=== PATIENT | male | born 1955 | race Caucasian/White ===

== ENCOUNTER → 2024-04-06 10:23 | Outpatient (REF) | payer OTHER, SELFPAY | LOC: RAD 10:23 | PROVIDERS: ATTENDING PHYSICIAN Internal Medicine | DX: Z12.2 Encounter for screening for malignant neoplasm of respiratory organs (principal); F17.210 Nicotine dependence, cigarettes, uncomplicated; R91.8 Other nonspecific abnormal finding of lung field; J84.10 Pulmonary fibrosis, unspecified; J43.9 Emphysema, unspecified | CPT/HCPCS: 71271 ==

== ENCOUNTER → 2024-06-08 08:00 | Outpatient (REF) | payer OTHER, SELFPAY ==
[2024-06-08 09:43] LABS: Microalbumin, Random Urine 0.7 mg/dl (0.6-1.7); Microalbumin/creatinine Ratio 4.1 mg/g
[2024-06-08 09:59] LABS: ALT (SGPT) 21 U/L (0-50); AST (SGOT) 25 U/L (17-59); Albumin 4.4 g/dl (3.5-5.0); Alkaline Phosphatase 88 U/L (38-126); Blood Urea Nitrogen 14 mg/dl (9-20); Calcium 9.7 mg/dl (8.4-10.2); Carbon Dioxide 26 mmol/L (22-30); Chloride 102 mmol/L (98-107); Glucose 112 mg/dl (70-99); HDL Cholesterol 39 mg/dl; LDL Cholesterol, Calculated 84 mg/dl; Potassium 4.7 mmol/L (3.5-5.1); Sodium 135 mmol/L (135-145); Total Bilirubin 0.6 mg/dl (0.2-1.3); Total Cholesterol 158 mg/dl (50-199); Total Protein 6.4 g/dl (6.3-8.2); Triglyceride 175 mg/dl (10-149); Very Low Density Lipoprotein 35 mg/dl (0-30); eGFR > 60.00
[2024-06-08 10:24] LABS: Glycohemoglobin (HgbA1c) 6.5 % (4.0-5.6)
[2024-06-08 10:33] LABS: PSA, Total - Screen 0.76 ng/ml (0.0-4.0)
== END ==
LOC: REG 08:00
PROVIDERS: ATTENDING PHYSICIAN Internal Medicine
DX: E11.9 Type 2 diabetes mellitus without complications (principal); E78.2 Mixed hyperlipidemia; Z12.5 Encounter for screening for malignant neoplasm of prostate
CPT/HCPCS: 36415; 80053; 80061; 82043; 82570; 83036; G0103

== ENCOUNTER → 2024-06-27 08:38 | Outpatient (REF) | payer OTHER, SELFPAY ==
[2024-06-27 11:39] LABS: ALT (SGPT) 20 U/L (0-50); AST (SGOT) 32 U/L (17-59); Albumin 4.4 g/dl (3.5-5.0); Alkaline Phosphatase 82 U/L (38-126); Blood Urea Nitrogen 18 mg/dl (9-20); Calcium 9.8 mg/dl (8.4-10.2); Carbon Dioxide 22 mmol/L (22-30); Chloride 103 mmol/L (98-107); Glucose 115 mg/dl (70-99); HDL Cholesterol 41 mg/dl; LDL Cholesterol, Calculated 70 mg/dl; Potassium 4.5 mmol/L (3.5-5.1); Sodium 134 mmol/L (135-145); Total Bilirubin 0.6 mg/dl (0.2-1.3); Total Cholesterol 132 mg/dl (50-199); Total Protein 6.3 g/dl (6.3-8.2); Triglyceride 108 mg/dl (10-149); Very Low Density Lipoprotein 21 mg/dl (0-30); eGFR > 60.00
== END ==
LOC: REG 08:38
PROVIDERS: ATTENDING PHYSICIAN Internal Medicine Cardiovascular Disease; FAMILY PHYSICIAN Internal Medicine
DX: E78.2 Mixed hyperlipidemia (principal)
CPT/HCPCS: 36415; 80053; 80061

== ENCOUNTER → 2024-11-30 08:06 | Outpatient (REF) | payer OTHER, SELFPAY ==
[2024-11-30 09:38] LABS: ALT (SGPT) 18 U/L (0-50); AST (SGOT) 22 U/L (17-59); Albumin 4.6 g/dl (3.5-5.0); Alkaline Phosphatase 86 U/L (38-126); Blood Urea Nitrogen 18 mg/dl (9-20); Calcium 9.6 mg/dl (8.4-10.2); Carbon Dioxide 22 mmol/L (22-30); Chloride 103 mmol/L (98-107); Glucose 119 mg/dl (70-99); HDL Cholesterol 45 mg/dl; LDL Cholesterol, Calculated 109 mg/dl; Potassium 4.5 mmol/L (3.5-5.1); Sodium 136 mmol/L (135-145); Total Bilirubin 0.5 mg/dl (0.2-1.3); Total Cholesterol 183 mg/dl (50-199); Total Protein 6.8 g/dl (6.3-8.2); Triglyceride 148 mg/dl (10-149); Very Low Density Lipoprotein 29 mg/dl (0-30); eGFR > 60.00
[2024-11-30 09:41] LABS: Microalbumin, Random Urine 1.1 mg/dl (0.6-1.7)
[2024-11-30 11:07] LABS: PSA, Total - Screen 0.58 ng/ml (0.0-4.0)
[2024-11-30 11:20] LABS: Erythrocyte Sed Rate 16 mm/hour (0-20)
[2024-11-30 11:55] LABS: tTG IgA Antibody 3.6 EU/ml (0-19); tTG IgG Antibody 5.4 EU/ml (0-19)
[2024-11-30 12:31] LABS: Glycohemoglobin (HgbA1c) 6.6 % (4.0-5.6)
[2024-11-30 23:19] LABS: IgA 93 mg/dl (70-400)
[2024-12-02 16:07] LABS: Fat, Fecal - Neutral Normal (Normal); Fat, Fecal - Split Normal (Normal)
[2024-12-02 22:46] LABS: Endomysial IgA Antibody Titer <1:10 (<1:10)
== END ==
LOC: REG 08:06
PROVIDERS: ATTENDING PHYSICIAN Internal Medicine; OTHER PHYSICIAN Internal Medicine Gastroenterology
DX: E11.59 Type 2 diabetes mellitus with other circulatory complications (principal); I10 Essential (primary) hypertension; E78.2 Mixed hyperlipidemia
CPT/HCPCS: 36415; 80053; 80061; 82043; 82570; 82653; 82705; 82784; 83036; 83516; 83993; 85652; 86140; 86231; G0103

== ENCOUNTER → 2024-12-06 09:26 | Outpatient (REF) | payer OTHER, SELFPAY ==
[2024-12-09 23:39] LABS: Pancreatic Elastase, Fecal 109 ug/g (>=100)
[2024-12-09 23:45] LABS: Calprotectin, Fecal 23 ug/g (<=49)
== END ==
LOC: REG 09:26
PROVIDERS: ATTENDING PHYSICIAN Internal Medicine Gastroenterology; FAMILY PHYSICIAN Internal Medicine
DX: K52.9 Noninfective gastroenteritis and colitis, unspecified (principal)
CPT/HCPCS: 82653; 83993; 87328; 87329

== ENCOUNTER → 2024-12-26 14:48 | Outpatient (REF) | payer OTHER, SELFPAY ==
[2024-12-29 00:07] LABS: Gastrin 17 pg/mL (0-100)
[2024-12-29 03:56] LABS: Calcitonin 5.5 pg/mL (0.0-7.5)
== END ==
LOC: REG 14:48
PROVIDERS: ATTENDING PHYSICIAN Internal Medicine Gastroenterology; FAMILY PHYSICIAN Internal Medicine
DX: K52.9 Noninfective gastroenteritis and colitis, unspecified (principal); K52.838 Other microscopic colitis; R19.7 Diarrhea, unspecified; Z79.02 Long term (current) use of antithrombotics/antiplatelets; E11.59 Type 2 diabetes mellitus with other circulatory complications
CPT/HCPCS: 36415; 82308; 82941; 84586; 86316

== ENCOUNTER → 2024-12-29 10:31 | Outpatient (REF) | payer OTHER, SELFPAY | LOC: REG 10:31 | PROVIDERS: ATTENDING PHYSICIAN Internal Medicine Gastroenterology; FAMILY PHYSICIAN Internal Medicine | DX: K52.9 Noninfective gastroenteritis and colitis, unspecified (principal); K52.838 Other microscopic colitis; R19.7 Diarrhea, unspecified; Z79.02 Long term (current) use of antithrombotics/antiplatelets; E11.59 Type 2 diabetes mellitus with other circulatory complications | CPT/HCPCS: 81050; 83497; 83835 ==

== ENCOUNTER → 2025-01-19 09:01 | Outpatient (REF) | payer OTHER, SELFPAY | LOC: RCS 09:01 | PROVIDERS: ATTENDING PHYSICIAN Student in an Organized Health Care Education/Training Program; FAMILY PHYSICIAN Internal Medicine | DX: I48.0 Paroxysmal atrial fibrillation (principal) | CPT/HCPCS: 93306 ==

== ENCOUNTER 2025-03-01 06:26 | Day surgery (SDC) | payer OTHER, SELFPAY ==
[2025-03-01 08:55] LABS: Glucose - Point of Care 126 mg/dl (70-99)
== END 2025-03-01 10:29 | disposition home or self-care (01) ==
LOC: GI 06:26
PROVIDERS: ATTENDING PHYSICIAN Internal Medicine Gastroenterology
DX: K52.9 Noninfective gastroenteritis and colitis, unspecified (principal); K64.8 Other hemorrhoids; K52.832 Lymphocytic colitis
CPT/HCPCS: 45380; 88305; 82962; 88342

== ENCOUNTER 2025-07-24 10:34 | Emergency (ER) | payer OTHER, SELFPAY ==
[2025-07-24] VITALS (21 sets, daily range): BP systolic 128–169; BP diastolic 61–81; BMI 29.8
--- NOTE | 2025-07-24 11:00 | ED.GENMED ---
History of Present Illness
General
Chief Complaint: Chest Pain
Source: patient and spouse
Time Seen by Provider: 07/24/25 10:47
History of Present Illness
History of Present Illness:
69-year-old male with past medical history of CAD status post previous MS with cardiac stent, atrial fibrillation, hypertension, hyperlipidemia, [id number] diabetes presenting to the ER for evaluation after he woke up this morning around
830 noticing a pain to the left anterior chest described to be more of a dull aching sensation that is constant, nonradiating, no exacerbating or alleviating factors and stating that he also noticed his heart rate was a little bit lower than usual
noting his heart rate is usually in the low 70s but today was in the 50s. He denies any other symptoms including shortness of breath, diaphoresis, lightheadedness or dizziness, feelings of near syncope, nausea or vomiting, abdominal pain, coughing,
pleurisy, lower extremity edema. Patient follows with [facility] cardiology and reports that he was seen within the last year and believes he had a normal echocardiogram at that time.
Past History
Past History
ED Past Medical History: Arrthythmia, CAD, HTN, Hypercholesterolemia, NIDDM and MS
ED Past Surgical History: Appendectomy, Cardiac and Orthopedic
Social History
Tobacco: Former smoker
Alcohol: Occasional
Drug: None
Personal:
Living: with family
Employment: Employed
Family History
Family History: Unable to obtain
Review of Systems
Review of Systems
All Other Systems: ROS reviewed and negative except as documented in HPI and ROS
Phy Exam
Physical Exam
Physical Exam:
GENERAL: Alert , in no apparent distress
EYE: clear conjunctiva b/l
HEAD: NCAT
ENT: o/p clr, mmm.
CARDIAC: Regular rate and rhythm .
LUNGS: Clear breath sounds bilaterally, no acute respiratory distress, no wheezes/rales/rhonchi
ABDOMEN: Soft, without focal tenderness, no r/g, no cvat
NEUROLOGICAL: Alert and oriented
SKIN: Warm and dry, skin intact.
MUSCULOSKELETAL: well perfused.
PSYCH: Normal and appropriate interaction.
Scores
Heart Failure Risk
Heart Failure Risk Score: Not Applicable
Heart Score for Chest Pain Patients
STEMI patient?: Not applicable
Withdrawal Assessment of Alcohol
Withdrawal Assessment Completed?: Not applicable
Course
Orders/Labs/Results
Orders:
Orders
07/24/25 10:38
Electrocardiogram (*1) Urgent
Reason for Study: Chest Pain
EKG- Treatment ONCE
07/24/25 11:01
Nitroglycerin Sublingual [Nitrostat (Sublingual)] 0.4 mg SL [id number] PRN
CR Chest - 2 Views Urgent
Comment:
Reason For Exam: chest pain
07/24/25 11:09
Basic Metabolic Panel Urgent
Complete Blood Count/With Diff Urgent
Troponin I Urgent
07/24/25 13:26
EKG- Treatment ONCE
07/24/25 13:45
EKG [Electrocardiogram (*1)] Urgent
Reason for Study: Chest Pain
07/24/25 13:50
Troponin I Urgent
Abnormal Lab Results
07/24/25
11:09
RBC 4.23 L 10^6/uL
(4.70-6.10)
Hgb 12.9 L g/dL
(13.0-18.0)
Hct 37.0 L %
(39.0-52.0)
MPV 11.4 H fL
(7.4-10.4)
Abs Immat Gran (auto) 0.2 H 10^3/uL
(0-0.05)
Absolute Neuts (auto) 7.2 H 10^3/uL
(1.4-6.5)
Absolute Monos (auto) 0.9 H 10^3/uL
(0.1-0.6)
Immature Gran % 1.6 H %
(0-0.5)
Sodium 131 L mmol/L
(135-145)
Glucose 200 H mg/dl
(70-99)
07/24/25 11:09
07/24/25 11:09
Vital Signs
Initial and Last Documented VS:
Initial Vital Signs
Temp Pulse Resp BP Pulse Ox
97.6 F 56 20 169/81 96
07/24/25 10:37 07/24/25 10:37 07/24/25 10:37 07/24/25 10:37 07/24/25 10:37
Last Documented Vital Signs
Temp Pulse Resp BP Pulse Ox
97.6 F 61 19 145/70 96
07/24/25 10:37 07/24/25 14:25 07/24/25 14:25 07/24/25 13:00 07/24/25 14:25
MDM/Problems Addressed
Differential Diagnosis Includes:
ACS/NSTEMI
Cardiac arrhythmia/dysrhythmia
Valvular dysfunction
Pericarditis/myocarditis
PE considered however patient is without cough, pleurisy or any other symptoms that would be suggestive of PE
Patient has clear lung sounds throughout making pneumothorax less likely
GERD/gastritis
MDM/Problems Addressed:
69-year-old male presenting to the ER for evaluation of chest pain and reportedly low heart rate for his baseline since this morning. Pain currently is 3 out of 10 described to be a dull ache. Not reproducible with palpation or position. Patient
is hemodynamically stable. Will trial a dose of nitroglycerin here. Labs and chest x-ray ordered. EKG done in triage shows sinus bradycardia without ectopy nor ischemic changes.
*Radiology
Radiology exam reviewed: preliminary read by ED provider (Normal chest x-ray female)
*Pulse Oximetry
SaO2: 96
Oxygen Mode of Delivery: Room air
Patient hypoxic: no
*EKG
Heart Rate: 55
Rate: bradycardiac
Rhythm: sinus
Vancleve: normal axis
Ischemia: no ischemia
*Cube Machine Tender Interpretation
Rate: bradycardiac
Heart Rate: 57
Rhythm: sinus
*Critical Care Note
Total Time (30-74mins, 75-104mins- exclusive of procedures): Not Applicable
Data Reviewed
Review of Other/Old Records Reveals: Labs, Records and Testing
Patient Management
Escalation/DeEscalation of care consider admission/obs:
Repeat troponin and EKG remain unchanged. Patient continues to feel well. Chest pain hotline was notified for patient follow-up. He is aware of return precautions. Stable for discharge home.
ED Attending Note
-
Portions of this chart may have been created with voice recognition software.� Occasional wrong word or��sound alike� substitutions may have occurred due to the inherent limitations of voice recognition software.
Discharge Plan
Departure
Patient Disposition: Home (Routine Discharge)
Date of Disposition: 07/24/25
Time of Disposition: 14:29
Patient with high blood pressure during this ER visit?: Yes
Discharge Problem:
Chest pain
Instructions: Chest Pain CBC Follow Up
Prescriptions:
No Action
nitroglycerin 0.4 MG tablet, sublingual
0.4 mg sublingual [id number] PRN (Reason: chest pain) Qty: 30 2RF
Patient Comments:
Patient states they havent needed it - never taken 05/20/16
atorvastatin 80 MG tablet
80 mg PO DAILY
aspirin 81 MG tablet,delayed release (DR/EC)
81 mg PO DAILY
gabapentin 300 mg capsule
300 mg PO DAILY
budesonide 3 mg capsule,delayed,extend.release
9 mg PO DAILY
lisinopril-hydrochlorothiazide 10-12.5 mg tablet
1 tab PO DAILY
metformin 500 mg tablet extended release 24 hr
500 mg PO DAILY
ezetimibe 10 mg tablet
10 mg PO DAILY
metoprolol tartrate 25 mg tablet
25 mg PO BID
Interventions
Interventions:
*Risk Screen - Suicide Last Done: 07/24/25 10:37
*General Assessment Last Done: 07/24/25 10:37
*Neglect/Abuse Screening Last Done: 07/24/25 11:05
*ED- Fall Risk Assessment Last Done: 07/24/25 11:05
*ED COVID-19 Vaccine History Last Done: 07/24/25 11:05
*Nursing Disposition Last Done: 07/24/25 14:37
ED- Cardiac Assessment Last Done: 07/24/25 11:05
Discharge Date and Time
Discharge Date/Time: 07/24/25 14:38
Print Language: KITTITIAN
[2025-07-24] MEDS: NITROSTAT (SUBLINGUAL) 0.4 MG SL (11:11)
[2025-07-24 11:35] LABS: Hematocrit 37.0 % (39.0-52.0); Hemoglobin 12.9 g/dL (13.0-18.0); Mean Corp Hgb Conc. 34.9 g/dL (33.0-37.0); Mean Corpuscular Volume 87.5 fL (80.0-94.0); Nucleated Red Blood Cells % 0 % (-); Platelet Count 200 10^3/uL (130-400); Red Cell Dist. Width 13.1 % (11.5-14.5)
[2025-07-24 11:47] LABS: Troponin I < 0.012 ng/ml
[2025-07-24 11:51] LABS: Blood Urea Nitrogen 12 mg/dl (9-20); Calcium 9.4 mg/dl (8.4-10.2); Carbon Dioxide 23 mmol/L (22-30); Chloride 101 mmol/L (98-107); Estimated Creatinine Clearance 113 ml/min; Glucose 200 mg/dl (70-99); Potassium 4.2 mmol/L (3.5-5.1); Sodium 131 mmol/L (135-145); eGFR > 60.00
[2025-07-24 14:27] LABS: Troponin I < 0.012 ng/ml
== END 2025-07-24 14:38 | disposition home or self-care (01) ==
LOC: EMR 10:34
PROVIDERS: Physician Assistant Medical; EMERGENCY PHYSICIAN Emergency Medicine; FAMILY PHYSICIAN Internal Medicine
DX: R07.9 Chest pain, unspecified (principal); E11.9 Type 2 diabetes mellitus without complications; E78.00 Pure hypercholesterolemia, unspecified; I10 Essential (primary) hypertension; I25.10 Atherosclerotic heart disease of native coronary artery without angina pectoris; I25.2 Old myocardial infarction; I48.91 Unspecified atrial fibrillation; Z87.891 Personal history of nicotine dependence; Z90.49 Acquired absence of other specified parts of digestive tract
CPT/HCPCS: 99285; 71046; 80048; 84484; 85025; 93005

== ENCOUNTER → 2025-08-01 06:58 | Outpatient (REF) | payer OTHER, SELFPAY | LOC: HWRCS 06:58 | PROVIDERS: ATTENDING PHYSICIAN Student in an Organized Health Care Education/Training Program; FAMILY PHYSICIAN Internal Medicine | DX: E78.2 Mixed hyperlipidemia (principal); I48.0 Paroxysmal atrial fibrillation; I25.10 Atherosclerotic heart disease of native coronary artery without angina pectoris; R07.89 Other chest pain | CPT/HCPCS: 78452; 93017; A9500; J2785 ==